=== PATIENT | male | born 1955 | race Caucasian/White ===

== ENCOUNTER → 2020-02-19 | Outpatient (CLI) | payer BC ==
[~2020-02-19] MED LIST: ALLOPURINOL 10100 M3 PO; ASA81BEC PO; EFFIENT10 MG PO; ENTRESTO 49 MG1 EACH PO; FISH OIL 1,0001 EAC9 PO; FLOMAX0.4 MG PO; LIPITOR40 MG PO; NITROSTAT0.4 M1 SUBLING; SEROQUEL 50 MG50 M1 PO; SPIRONOLACTONE25 MG PO; TOPROL XL25 MG PO
== END ==
LOC: LAB 08:01
PROVIDERS: ATTEND Surgery Vascular Surgery
DX: Z01.812 Encounter for preprocedural laboratory examination (principal); Z20.828 Contact with and (suspected) exposure to other viral communicable diseases

== ENCOUNTER 2020-02-25 18:11 | Inpatient (IN) | payer BC, OTHER ==
--- NOTE | 2020-02-19 09:07 | EKG ---
[facility] [place] [address] ELECTROCARDIOGRAM REPORT Name: VALERAERVIN Room #: PRE IN M.R.#: [id number] Admission: Attend Phys: Kory Mosher MD Discharge: Date of : 53 Report #: [id number] THIS REPORT FOR: cc: Gilbert Pérez MD, Greg L. MD Santiago, Patrick MD [facility] ~ THIS REPORT FOR: //name// [facility] Test Date: 2020-02-19 Test Time: 08:59:25 Pat Name: ERVIN VALERA Department: Room: Gender: M Pta: HECTOR CLARK : 1955 Requested By: Kory Mosher Order Number: [id number] : Hernán Méndez Measurements Intervals [place] Rate: 60 P: 15 NM: 167 QRS: -12 QRSD: 118 T: 67 QT: 483 QTc: 483 Interpretive Statements Sinus rhythm Incomplete left bundle branch block Low voltage, precordial leads Anterior Q waves, possibly due to ILBBB No previous ECG available for comparison Electronically Signed On 02-19-2020 9:07:22 OCCUPATIONAL THERAPIST REHAB MANAGER by Hernán Méndez [email or web address] <ELECTRONICALLY SIGNED> By: Hernán Méndez MD, FAC 02/19/2007 Hernán Méndez MD, [facility] /EPI
[2020-02-19 09:10] LABS: ABSOLUTE NEUTROPHILS 4.6 thou/uL (1.4-8.2); BASOPHILS 0.7 % (0.0-2.0); EOSINOPHILS 2.4 % (0.0-3.0); HEMATOCRIT 43.6 % (42.0-52.0); HEMOGLOBIN 14.8 gm/dL (14.0-18.0); LYMPHOCYTES 16.7 % (24.0-44.0); MCH 29.6 pg (26.0-34.0); MONOCYTES 9.7 % (1.0-8.0); PLATELET COUNT 232 thou/uL (150-400); POLYS 70.5 % (36.0-66.0); RBC 5.01 mil/uL (4.50-6.00); RDW 13.6 % (10.5-14.5); WBC 6.5 thou/uL (4.0-11.0)
[2020-02-19 09:13] LABS: URINE BILIRUBIN NEGATIVE (Negative); URINE BLOOD NEGATIVE (Negative); URINE CLARITY CLEAR; URINE COLOR YELLOW; URINE GLUCOSE-RANDOM* NEGATIVE (Negative); URINE KETONES NEGATIVE (Negative); URINE LEUKOCYTES-REFLEX NEGATIVE (Negative); URINE NITRITE-REFLEX NEGATIVE (Negative); URINE PROTEIN (DIPSTICK) NEGATIVE (Negative); URINE SPECIFIC GRAVITY 1.015 (1.005-1.035); URINE UROBILINOGEN 0.2 E.U./dl (0.2-1.0)
[2020-02-19 09:26] LABS: APTT 29.2 Seconds (24.5-32.8); INR 1.1; PROTIME 10.9 Seconds (9.3-11.4)
[2020-02-19 09:31] LABS: ALBUMIN 3.4 g/dL (3.4-5.0); CALCIUM 9.7 mg/dL (8.5-10.1); CREATININE 1.4 mg/dL (0.7-1.3); POTASSIUM 3.9 mmol/L (3.5-5.1); TOTAL BILIRUBIN 0.8 mg/dL (0.2-1.0); TOTAL PROTEIN 6.6 g/dL (6.4-8.2)
[2020-02-20 00:06] LABS: GLYCOHEMOGLOBIN (HGB A1C) 5.7 % (4.8-5.6)
[~2020-02-25] VITALS: Ht 182.9 cm; Wt 69.9 kg
[2020-02-25 18:15] VITALS: BP 130/87
[2020-02-25 20:04] VITALS: BP 130/76
--- NOTE | 2020-02-25 20:31 | NUR ---
PT ARRIVED TO UNIT AT APPROX 1815. HOSPITALIST NOTIFIED OF ARRIVAL. VSS. DENIES PAIN/CHEST PAIN. TIROFIBAN GTT STARTED PER ORDERS. PAPER ORDERS RECEIVED FROM DR WORLEY ENTERED INTO SYSTEM. PLAN FOR CAROTIDS/VEIN MAPPING TOMORROW, CABG 02/27. IV STARTED. TELE APPLIED. PT WEARS LIFE VEST-PT APPLIED. WILL PASS ON REPORT TO PASQUALE YOUNG.
[2020-02-26 00:16] VITALS: BP 129/70
[2020-02-26 04:56] LABS: HEMATOCRIT 41.2 % (42.0-52.0); HEMOGLOBIN 13.6 gm/dL (14.0-18.0); MCH 28.9 pg (26.0-34.0); MCV 87.7 fL (80.0-100.0); RBC 4.7 mil/uL (4.50-6.00); RDW 13.6 % (10.5-14.5); WBC 6.6 thou/uL (4.0-11.0)
[2020-02-26 05:07] VITALS: BP 123/68
[2020-02-26 05:19] LABS: CALCIUM 8.8 mg/dL (8.5-10.1); CREATININE 1.2 mg/dL (0.7-1.3); MAGNESIUM 1.9 mg/dL (1.8-2.4); POTASSIUM 3.9 mmol/L (3.5-5.1)
--- NOTE | 2020-02-26 06:12 | NUR ---
ASSUME CARE 1900. PT/VITALS STABLE. DENIES ANY CHEST PAIN. TOLERATING ACTIVITY WELL. NO DITRESS NOTED. SR ON MONITOR. ASSESSMENT CHARTED. PROGRESSING WELL WITH POC. PT ON AGGRASTAT DRIP. NO ARRHYTHMIA NOTED THROUGH THE NIGHT. RESTING QUIETLY. PLAN IS POSSIBLE CABG ON 02/28/20. WILL CONTINUE TO MONITOR AND FOLLOW WIHT POC
[2020-02-26 08:07] VITALS: BP 140/94
[2020-02-26 12:02] VITALS: BP 127/83
[2020-02-26 16:35] VITALS: BP 143/79
--- NOTE | 2020-02-26 18:17 | NUR ---
Patient had an uneventful day. Heart rate and rhythm stable. Patient has worn life vest all day. No activity. Patient up to chair on/off throughout the day. Adequate oxygenation on room air. Tolerating diet. Voiding adequate amounts. Patient will have open heart surgery on . Denies pain. See documemtation on interventions for assessment details. Pt is progressing towards plan of care.
--- NOTE | 2020-02-26 19:25 | NUR ---
VASCULAR ACCESS CONSULTED FOR MIDLINE PRE CABG SURG. DISCUSSED BENEFITS AND RISK OF ML WITH PT,VERBALIZED UNDERSTANDING AND GAVE VERBAL CONSENT TO LINE PLACEMENT. SUSHILA BASILIC WIDELY PATENT WITH US GUIDE,4FR POWER ML TRIMMED TO 11CM INSERTED TO 0CM WITH BRISK BR. PT TOLERATED WELL. ML RELEASED TO JASWINDER YOUNG PER PROTOCOL
[2020-02-26 19:50] VITALS: BP 145/86
[2020-02-27 05:17] VITALS: BP 117/72
--- NOTE | 2020-02-27 06:41 | NUR ---
ASSUMED PATIENT CARE AT 1845. VITAL SIGNS STABLE WITH PATIENT HAVING NO COMPLAINTS OF PAIN OR NAUSEA. FULLY ORIENTED, PATIENT IS ABLE TO CALL APPROPRIATELY FOR NEEDS AND PARTICIPATE IN CARE. NO ABNORMAL FINDINGS ON MAT MAKING MACHINE TENDER. PATIENT HAS BEEN UP AD RACHANA THROUGHOUT SHIFT AND IS STRONG AND BALANCED WHEN AMBULATING. EXPECTED PROCEDURE 02/28/20. CONTINUE PLAN OF CARE.
[2020-02-27 07:15] VITALS: BP 114/66
--- NOTE | 2020-02-27 10:30 | NUR ---
Case opened to follow for dc planning needs. Chart reviewed, case discussed with the care team and cm assessment completed at bedside. The pt is a&ox4 and is having open heart surgery tomorrow. He has a life vest on and reports having an [place] in August 2019. He was at [facility] for a month and was able to go to their rehab and ultimately dc to home with hh per the [facility]. He is up ad paris at this time and steady on his feet. He does have a FWW and cane at home if needed at tx. He lives alone in a ranch style home with one step to enter and 12 down to the basement laundry. He has a cleaning lady 1-2x monthly and his sister Sherri is planning to help with errands, laundry and f/u appts at tx. She is also his dpoa for health care if needed. He is hoping he will be able to return home with outpt cardiac rehab, but is open to HH per the [facility] again at tx. CM role introduced. Will follow along for possible HH referral at tx. Will reassess postop CABG.
[2020-02-27 11:10] VITALS: BP 137/75
[2020-02-27 15:35] VITALS: BP 137/63
--- NOTE | 2020-02-27 16:17 | NUR ---
ASSESSMENT CHARTED. PT ALERT AND ORIENTED. VSS. DENIED HAVING PAIN OR DISCOMFORT. UP IN THE CHAIR THIS SHIFT. LIFE VEST ON. SR ON TELE. NPO AFTER MIDNIGHT FOR CABG IN AM. CONSENT SIGNED. NO CARDIAC DISTRESS NOTED.
[2020-02-27 20:11] VITALS: BP 131/65
[2020-02-28] VITALS (33 sets, daily range): BP systolic 102–134; BP diastolic 54–80
--- NOTE | 2020-02-28 07:31 | NUR ---
ASSUMED PATIENT CARE AT 1845. VITAL SIGNS STABLE WITH PATIENT HAVING NO COMPLAINTS OF PAIN OR NAUSEA. FULLY ORIENTED, PATIENT IS ABLE TO PARTICIPATE IN CARE AND CALL APPROPRIATELY FOR REQUESTS. NO ABNORMALITIES ON TELE. BREATHING STABLE ON ROOM AIR EVIDENCED BY ASSESSMENTS AND SPOT OXYGENATION CHECKS. PATIENT HAS BEEN KEPT NPO FOR PROCEDURE THIS MORNING. PRE OP CARE GIVEN WITH FULL REPORT. PATIENT TRANSFERRED TO PRE OP AT APPROXIMATELY 0600. UP AD RACHANA THROUGHOUT SHIFT, PATIENT IS BALANCED AND COORDINATED WHEN AMBULATING. CONTINUE PLAN OF CARE.
--- NOTE | 2020-02-28 10:07 | CATHLAB ---
[facility] [place] [address] INVASIVE PROCEDURE REPORT Name: ERVIN VALERA Room #: 170-1 ADM IN M.R.#: [id number] Admission: 02/25/20 Attend Phys: Peter Campos MD Discharge: Date of : 53 Report #: [id number] THIS REPORT FOR: cc: Gilbert Pérez MD, Greg L. MD Lundgren, Craig H. MD [facility] ~ APPROVED REPORT Study performed: 02/28/2020 08:58:48 Patient Details Patient Status: In-Patient Room #: The patient is a 64 year-old male Event Personnel Brielle Lora RN RN, Mirta Rogers Monitor, Jessica Webster RTR, DEVELOPMENT ASSISTANT Scrub, Eric Torres Manager Massage Department, Negrita Almanza RT(R)() Mental Measurements Teacher Procedures Performed Art Access - L femoral artery* IABP Placement [id number] IABPI 13482 Initial Mod Sed Same Phys/QHP Gr5y 445457 98434 Mod Sed Same Phys/QHP Ea 874708 Indication Cardiomyopathy, PLACED PRE OP FOR BYPASS. Procedure Narrative The patient was brought urgently to the Cardiac Catheterization Laboratory and was prepped and draped in a sterile manner. The left groin was infiltrated with 1% Lidocaine subcutaneous anesthesia. A FIBEROPTIX 8F 40CC #[id number] sheath was inserted into the LFA^. Coronary angiography was performed using coronary diagnostic catheters. The patient tolerated the procedure well and there were no complications associated with the procedure. There was no hematoma. ARROW FIBEROPTIX IAB 40CC 8F PLACED PRE OP FOR SURGERY. Counterpulsation at 1:1 started. Tolerated well. Intraoperative Conscious Sedation Sedation start time: 907 Case end Time: 929 Fentanyl 100 mcg Versed 2 mg Fluoro Time: 0.60 minutes [facility] [place] [address] INVASIVE PROCEDURE REPORT Name: VALERAERVIN Room #: [address] [place] [address] IN ..#: [id number] Admission: 02/25/20 Attend Phys: Peter Campos, Discharge: Date of : 53 Report #: [id number] Dose: DAP 845.00 cGycm2 174 mGy Conclusion 1. Successful intra-aortic balloon pump placed with 1:1 counterpulsation started <ELECTRONICALLY SIGNED> By: Eric Torres MD, FACC 02/28/201005 05 05 Eric Torres MD, FACC /INF
[2020-02-28 15:14] LABS: HEMATOCRIT 25.8 % (42.0-52.0); MCH 29.1 pg (26.0-34.0); MCHC 33.1 g/dL (28.0-37.0); RBC 2.93 mil/uL (4.50-6.00); RDW 13.6 % (10.5-14.5); WBC 12.8 thou/uL (4.0-11.0)
[2020-02-28 15:16] LABS: HEMOGLOBIN 8.5 gm/dL (14.0-18.0)
[2020-02-28 15:29] LABS: APTT 32.1 Seconds (24.5-32.8); FIBRINOGEN 239.7 mg/dL (210-360); INR 1.7
[2020-02-28 16:36] LABS: HEMATOCRIT 33.8 % (42.0-52.0); MCH 29.2 pg (26.0-34.0); MCHC 33.1 g/dL (28.0-37.0); MCV 88.3 fL (80.0-100.0); RBC 3.83 mil/uL (4.50-6.00); RDW 13.7 % (10.5-14.5); WBC 13.8 thou/uL (4.0-11.0)
[2020-02-28 16:37] LABS: HEMOGLOBIN 11.2 gm/dL (14.0-18.0)
[2020-02-28 16:42] LABS: CALCIUM 8.3 mg/dL (8.5-10.1); CREATININE 1.2 mg/dL (0.7-1.3); MAGNESIUM 2.4 mg/dL (1.8-2.4)
[2020-02-28 16:52] LABS: BE(vivo) -7.2 mmol/L (-2 to +3); HCO3 19.2 mmol/L (22.0-26.0); PO2 145.1 mmHg (80.0-100.0); sO2 98.6 % (92.0-98.0)
[2020-02-28 16:52] LABS: APTT 28.8 Seconds (24.5-32.8); INR 1.2; PROTIME 12.1 Seconds (9.3-11.4)
[2020-02-28 16:53] LABS: pH 7.277 (7.360-7.450)
--- NOTE | 2020-02-28 17:10 | NUR ---
@4708 CAMDEN POWELL CALLED FOR AN UPDATE, DR WORLEY AT BEDSIDE AND CAMDEN UPDATED AT THIS TIME.
--- NOTE | 2020-02-28 19:00 | NUR ---
ASSESSMENTS AND INTERVENTIONS DOCCUMENTED. PATIENT ARRIVED TO THE UNIT WITH DR. ROSAS, NATIVIDAD MULLIGAN, DR. MATHIS AND 2 OR NURSES. PATIENT SETTLED INTO THE ROOM. SWAN, BALLOON PUMP IN TACT AND CHEST TUBES IN PLACE NO CLOTTING NOTED. AT 1651. DR. WORLEY PULLING BACK SWAN AND BALLOON PUMP. FOLLOW UP CXR DONE, DR. WORLEY AND NATIVIDAD MULLIGAN AT BEDSIDE. PATIENT STABLE. NO ISSUES AT THIS TIME. PATIENT PROGRESSING TOWARDS GOALS AT THIS TIME.
[2020-02-28 20:31] LABS: CALCIUM 8.3 mg/dL (8.5-10.1); CREATININE 1.2 mg/dL (0.7-1.3); POTASSIUM 4.6 mmol/L (3.5-5.1)
[2020-02-28 23:37] LABS: BE(vivo) -4.5 mmol/L (-2 to +3); HCO3 19.6 mmol/L (22.0-26.0); PCO2 32.9 mmHg (35.0-45.0); PO2 115.7 mmHg (80.0-100.0); pH 7.393 (7.360-7.450); sO2 98.2 % (92.0-98.0)
[2020-02-29] VITALS (20 sets, daily range): BP systolic 99–122; BP diastolic 49–67
[2020-02-29 00:18] LABS: HCO3 18.7 mmol/L (22.0-26.0); PCO2 30.8 mmHg (35.0-45.0); PO2 108.5 mmHg (80.0-100.0); pH 7.402 (7.360-7.450)
[2020-02-29 01:00] LABS: BE(vivo) -5.8 mmol/L (-2 to +3); HCO3 17.9 mmol/L (22.0-26.0); PCO2 29.5 mmHg (35.0-45.0); PO2 80.8 mmHg (80.0-100.0); sO2 96.1 % (92.0-98.0)
--- NOTE | 2020-02-29 04:21 | NUR ---
Pt has not rested well through the shift, he reports a throbbing pain, rated from 8-10/10, despite prn meds given. He was extubated at 0025, and placed on face shield at 40%, lungs are clear/diminished, fair cough noted. Lt groin accessed, IABP in place, distal pulse is intact, foot slightly cool, (the room is cooler though), cap refill is <2 seconds. Insulin gtt was started at 0157, and is currently infusing at 6 units/hr, for BGL of 139. Monitor does show occasional ectopy, PAC's with a first degree AVB, rate from 80's-90's, no edema. Pt is taking ice chips well, no dysphagia, no complaint of nausea. The bed is in the low/locked position, the siderails are up x 4 , will continue to monitor.
[2020-02-29 04:24] LABS: HEMATOCRIT 31.8 % (42.0-52.0); HEMOGLOBIN 10.5 gm/dL (14.0-18.0); MCHC 33.1 g/dL (28.0-37.0); MCV 87.8 fL (80.0-100.0); RBC 3.62 mil/uL (4.50-6.00); RDW 13.5 % (10.5-14.5); WBC 12.9 thou/uL (4.0-11.0)
[2020-02-29 04:34] LABS: CALCIUM 8.3 mg/dL (8.5-10.1); CREATININE 1.2 mg/dL (0.7-1.3); MAGNESIUM 2.3 mg/dL (1.8-2.4); POTASSIUM 4.1 mmol/L (3.5-5.1)
--- NOTE | 2020-02-29 07:02 | EKG ---
[facility] [place] [address] ELECTROCARDIOGRAM REPORT Name: ERVIN VALERA Room #: 248-P ADM IN M.R.#: [id number] Admission: 02/25/20 Attend Phys: Peter Campos MD Discharge: Date of : 53 Report #: [id number] THIS REPORT FOR: cc: Gilbert Pérez MD, Greg L. MD Santiago, Patrick MD [facility] ~ THIS REPORT FOR: //name// [facility] Test Date: 2020-02-28 Test Time: 19:23:06 Pat Name: ERVIN VALERA Department: Room: 248 Gender: M Attendant Child Activity: HILARIO : 1955 Requested By: Pablo Hartley Order Number: [id number] MD: Hernán Méndez Measurements Intervals [place] Rate: 94 P: 46 FL: 181 QRS: -12 QRSD: 109 T: 51 QT: 427 QTc: 535 Interpretive Statements Sinus rhythm Low voltage, precordial leads Abnormal R-wave progression, early transition Prolonged QT interval Compared to ECG 02/19/2020 08:59:25 Prolonged QT interval now present Left bundle-branch block no longer present Q waves no longer present Electronically Signed On 02-29-2020 7:02:45 SENIOR IT ASSISTANT by Hernán Méndez [email or web address] <ELECTRONICALLY SIGNED> By: Hernán Méndez MD, FACC 02/29/20701 22 22 Hernán Méndez MD, [facility] /EPI
--- NOTE | 2020-02-29 08:13 | EKG ---
[facility] [place] [address] ELECTROCARDIOGRAM REPORT Name: ERVIN VALERA Room #: 248-P ADM IN M.R.#: [id number] Admission: 02/25/20 Attend Phys: Peter Campos MD Discharge: Date of : 53 Report #: [id number] THIS REPORT FOR: cc: Gilbert Pérez MD, Greg L. MD Couchonnal, Luis F. MD ~ THIS REPORT FOR: //name// [facility] Test Date: 2020-02-29 Test Time: 07:40:03 Pat Name: ERVIN VALERA Department: Room: 248 P Gender: M Expedition Supervisor: CELESTINA : 1955 Requested By: Pablo Hartley Order Number: [id number] MD: Kevin Noel Measurements Intervals [place] Rate: 76 P: 51 MA: 175 QRS: -6 QRSD: 109 T: 80 QT: 441 QTc: 496 Interpretive Statements Sinus rhythm Low voltage, precordial leads Abnormal R-wave progression, early transition Borderline prolonged QT interval Compared to ECG 02/28/2020 19:23:06 Electronically Signed On 02-29-2020 8:13:27 TEST AUTOMATION ARCHITECT by Kevin Noel [email or web address] <ELECTRONICALLY SIGNED> By: Kevin Noel MD 02/29/20812 9 9 Kevin Noel MD /EPI
--- NOTE | 2020-02-29 08:34 | NUR ---
Nutrition: pt S/P CABG X 5. Consult received. Will followup when out of ICU and closer to D/C.
[2020-02-29 09:06] LABS: POC BE -2 mmol/L (-2.0 to +3.0); POC CA IONIZED 4.3 mg/dL (4.5-5.3); POC GLUCOSE 140 mg/dL (70-99); POC HCO3 23.2 mmol/L (22.0-26.0); POC HEMOGLOBIN 8.8 g/dL (14.0-18.0); POC POTASSIUM 5.2 mmol/L (3.5-5.1); POC SODIUM 138 mmol/L (136-145); POC pCO2 37.9 mmHg (35.0-45.0); POC pH 7.394 (7.360-7.450)
[2020-02-29 09:06] LABS: POC BE -2 mmol/L (-2.0 to +3.0); POC CA IONIZED 4.7 mg/dL (4.5-5.3); POC GLUCOSE 107 mg/dL (70-99); POC HCO3 23.4 mmol/L (22.0-26.0); POC HEMOGLOBIN 12.2 g/dL (14.0-18.0); POC POTASSIUM 4.7 mmol/L (3.5-5.1); POC SODIUM 138 mmol/L (136-145); POC pCO2 38.1 mmHg (35.0-45.0); POC pH 7.396 (7.360-7.450)
[2020-02-29 09:07] LABS: POC BE -2 mmol/L (-2.0 to +3.0); POC CA IONIZED 4.2 mg/dL (4.5-5.3); POC GLUCOSE 155 mg/dL (70-99); POC HCO3 22.7 mmol/L (22.0-26.0); POC HEMOGLOBIN 8.8 g/dL (14.0-18.0); POC POTASSIUM 5.6 mmol/L (3.5-5.1); POC SODIUM 138 mmol/L (136-145); POC pCO2 38.2 mmHg (35.0-45.0); POC pH 7.382 (7.360-7.450)
[2020-02-29 09:07] LABS: POC BE -3 mmol/L (-2.0 to +3.0); POC CA IONIZED 4.7 mg/dL (4.5-5.3); POC GLUCOSE 127 mg/dL (70-99); POC HCO3 22.8 mmol/L (22.0-26.0); POC HEMOGLOBIN 11.6 g/dL (14.0-18.0); POC POTASSIUM 4.8 mmol/L (3.5-5.1); POC SODIUM 137 mmol/L (136-145); POC pCO2 42.1 mmHg (35.0-45.0); POC pH 7.342 (7.360-7.450)
[2020-02-29 09:07] LABS: POC BE -3 mmol/L (-2.0 to +3.0); POC CA IONIZED 4.6 mg/dL (4.5-5.3); POC GLUCOSE 151 mg/dL (70-99); POC HCO3 22.5 mmol/L (22.0-26.0); POC HEMOGLOBIN 8.8 g/dL (14.0-18.0); POC SODIUM 137 mmol/L (136-145); POC pCO2 42.3 mmHg (35.0-45.0); POC pH 7.335 (7.360-7.450)
[2020-02-29 09:07] LABS: POC BE 0 mmol/L (-2.0 to +3.0); POC CA IONIZED 4.2 mg/dL (4.5-5.3); POC GLUCOSE 130 mg/dL (70-99); POC HCO3 24.4 mmol/L (22.0-26.0); POC HEMOGLOBIN 9.9 g/dL (14.0-18.0); POC POTASSIUM 5.1 mmol/L (3.5-5.1); POC SODIUM 137 mmol/L (136-145); POC pH 7.394 (7.360-7.450)
[2020-02-29 09:07] LABS: POC BE -3 mmol/L (-2.0 to +3.0); POC CA IONIZED 4.3 mg/dL (4.5-5.3); POC GLUCOSE 152 mg/dL (70-99); POC HCO3 22.4 mmol/L (22.0-26.0); POC HEMOGLOBIN 8.8 g/dL (14.0-18.0); POC POTASSIUM 5.7 mmol/L (3.5-5.1); POC SODIUM 138 mmol/L (136-145); POC pCO2 41.3 mmHg (35.0-45.0); POC pH 7.342 (7.360-7.450)
[2020-02-29 09:07] LABS: POC BE -5 mmol/L (-2.0 to +3.0); POC CA IONIZED 4.5 mg/dL (4.5-5.3); POC GLUCOSE 147 mg/dL (70-99); POC HCO3 20.8 mmol/L (22.0-26.0); POC HEMOGLOBIN 10.9 g/dL (14.0-18.0); POC POTASSIUM 4.8 mmol/L (3.5-5.1); POC SODIUM 138 mmol/L (136-145); POC pCO2 39.5 mmHg (35.0-45.0); POC pH 7.329 (7.360-7.450)
--- NOTE | 2020-02-29 11:05 | O ---
[facility] [place] [address] OPERATIVE REPORT Name: ERVIN VALERA Room #: 248-P [facility] IN M.R.#: [id number] Admission: 02/25/20 Attend Phys: Peter Campos MD Discharge: Date of : 53 Report #: [id number] THIS REPORT FOR: cc: Gilbert Pérez MD, Greg L. MD Forman, John M. MD ~ CC: Gilbert Campos DATE OF SERVICE: 02/28/2020 PREOPERATIVE DIAGNOSIS: Coronary artery disease. POSTOPERATIVE DIAGNOSIS: Coronary artery disease. OPERATION: Coronary artery bypass x 5 including left internal mammary artery to left anterior descending artery, saphenous vein to diagonal, marginal 1 and marginal 2 and saphenous vein to posterior descending artery and endoscopic harvest, right greater saphenous vein. SURGEON: Kory Mosher MD PUNCH OUT CREW MEMBER: ISAAK Olivo. ANESTHESIA: General. INDICATIONS: The patient is a 64-year-old with coronary artery disease. The patient had an acute event in the summer and had angioplasty of circumflex marginal and at that time, he also had chronically occluded LAD and right coronary arteries. The patient had a reduced ventricular function at that time and since, the patient had a long hospitalization after that event, but ultimately recovered enough to be considered for bypass surgery. Because the patient has an ejection fraction in the 20-25% range by serial echos and elective balloon pump was placed prior to surgery. TECHNIQUE: After general anesthesia was established and after the patient had had the balloon pump placed in the catheterization lab, right greater saphenous vein was harvested and prepared for use as a conduit and endoscopic approach was used for the harvest. Exposure was obtained through median sternotomy. Left internal mammary artery was harvested from chest wall. Pericardial well was made. Cannulation sutures were placed. Heparin was given. Aorta was cannulated. Right atrium was cannulated. Cardioplegia needle was positioned in the aortic root. Retrograde cardioplegic catheter was placed in coronary sinus. Cardiopulmonary bypass was [facility] [address] [place] [address] OPERATIVE REPORT Name: ERVIN VALERA Room #: 248-P [facility] IN M.R.#: [id number] Admission: 02/25/20 Attend Phys: Peter Campos MD Discharge: Date of : 53 Report #: [id number] established. The aorta was cross clamped. Antegrade and retrograde cardioplegia were given. Ice was poured in the pericardial well. The heart was stopped. During electromechanical arrest, the distal anastomoses were performed and end-to-side anastomosis was made between vein and the posterior descending artery. Cold cardioplegia was given. A separate segment of vein was sewn in end-to-side fashion to the second marginal artery. Cold cardioplegia was given. The same segment of vein was sewn in adho-hm-ozgo fashion to first marginal artery. Cold cardioplegia was given. The same segment of vein was sewn in end-to-side fashion to the diagonal artery. Cold cardioplegia was given. Left internal mammary artery was sewn in end-to-side fashion to the left anterior descending artery. Patency of this vessel was checked with the temperature technique. Cold cardioplegia was given. Two proximal anastomoses were performed. When these were complete, warm retrograde cardioplegia was given followed by warm continuous blood to the coronary sinus. When this infusion was complete, the crossclamp was removed, de-airing maneuvers were performed. The anastomoses were inspected and found to be satisfactory. As the patient warmed, nice cardiac activity resumed, chest tubes and pacing wires were placed. A marker was placed around the proximal anastomoses. When the patient was warm, he was weaned from cardiopulmonary bypass. Empirically, we chose a low dose dobutamine as well as the balloon pump. The patient tolerated weaning from the bypass as well. Venous cannula was removed. Protamine was given, the aortic cannula was removed. Flows were measured in the bypass grafts. When hemostasis was satisfactory, chest was irrigated with antibiotic solution and closed in the usual fashion. The patient tolerated surgery well and was taken to the Intensive Care Unit in good condition. All counts reported as correct. <ELECTRONICALLY SIGNED> By: Kory Mosher MD 02/29/20 1105 1957 2219 Kory Mosher MD /nt
--- NOTE | 2020-02-29 12:47 | NUR ---
0710-ASSUMED CARE OF PT.--VW 1100-IABP PULLED BY NATIVIDAD MALLOY,CV P.A. W AT BEDSIDE. PRESSURE INITIALLY HELD BY NATIVIDAD THEN TAKEN OVER BY THIS RN.TOTAL TIME HELD 50 MINUTES. LT GROIN SITE SOFT,NO BLEEDING OR HEMATOMA. HEMOSTASIS @ 1055. PRSS DRSG TO SITE. UTO ANY DISTAL SIGNALS EXCEPT W USE OF DOPPLER. PEDALS FAINT,RT POST TIB FAINT. UTO LT POST TIB. FEET COOL, NO CYANOSIS.PT NICK THIS WELL.--VW 1250-PT HAS CONSISTENTLY C/O OP PAIN A 01/04. NO RELIEF W TURNING/REPOS, OR USE OF FENTANYL. IV TYLENOL STARTED p D/W THIS AM. PT STATES NO RELIEF OR EASING UP OF PAIN.PT ASKED FOR IBUPROFEN- SAID NO (CKD).DESPITE COMFORT MEASURES PT STATES HE IS MISERABLE. ZOFRAN FOR QUEEZY STOMACH. TAKING ICE CHIPS EARLIER, DRINKING WATER ONLY W ENC (SIPS).PT CONT'S W SPLINTING RESP'S.SCANT OUTPUT FROM MST'S/CT.REPOS FOR COMFORT SEV X'S SINCE IABP OUT.LT GROIN REMAINS STABLE.--VW
--- NOTE | 2020-02-29 15:30 | NUR ---
chart review. pt eval orders, variance today. chaz has been up to chair. had pain. o2 per nasal cannula. no anticipated dc over the weekend. he was agreeable to [facility] if needed. will discuss rehab if recommended for dc needs. will cont following as needed for dc needs next week. unable to visit with chaz rt bedside nurse in room for cares.
[2020-03-01] VITALS (8 sets, daily range): BP systolic 107–148; BP diastolic 59–82
[2020-03-01 06:15] LABS: HEMATOCRIT 26.3 % (42.0-52.0); HEMOGLOBIN 8.7 gm/dL (14.0-18.0); MCH 29.1 pg (26.0-34.0); MCV 88.1 fL (80.0-100.0); RBC 2.99 mil/uL (4.50-6.00); RDW 13.7 % (10.5-14.5); WBC 11.3 thou/uL (4.0-11.0)
[2020-03-01 06:27] LABS: CALCIUM 8.6 mg/dL (8.5-10.1); CREATININE 1.2 mg/dL (0.7-1.3); POTASSIUM 4.4 mmol/L (3.5-5.1)
--- NOTE | 2020-03-01 14:54 | NUR ---
ASSUMED CARE OF PT AT CHANGE OF SHIFT. 899 UPDATED PT SISTER REGARDING PT STATUS. PT CONTINUING COMPLIANING OF 01/[address] FROST REGARDING PAIN MED REGIMEN. OK TO RESUME HDROCODONE PRN PER MEIR. SUSANNAENE AT 0915 FOR SUSTAINED SYSTOLICS IN 160'S. CARDENE OFF BY 1115 W/ PT SYSTOLICS 110'S. OK PER JAC TO REMOVE SWAN, ART LINE, AND BROWN. ALL OF WHICH D/C AT 1345. PT UP X1 W/PT VERY STEADY AT 1420. TRANSFERED TO CCU AT 1445
--- NOTE | 2020-03-01 19:42 | NUR ---
PT CARE ASSUMED AT 0700. ASSESSMENTS CHARTED. MEDICATION CHARTED. LT MIDLINE. IS; 750. USES URINAL/BSC. CHEST TUBE LT. EF; 25% TRANSFER FROM ICU AT 1400.
[2020-03-02] VITALS (8 sets, daily range): BP systolic 104–124; BP diastolic 58–81
--- NOTE | 2020-03-02 08:17 | NUR ---
ASSUMED CARE AT CHANGE OF SHIFT, PT IS AWAKE, ALERT AND ORIENTEDX4, SR ON THE MONITOR, PAIN FROM CHEST TUBE SITE, PAIN MEDICATION GIVEN WITH PARTIAL RELIEF, CHEST TUBE INTACT, WITH 20CC OUTPUT, NO URINE OUTPUT AFTER BROWN REMOVAL, BLADDER SCANNED WITH 739, STRAIGHT CATHX1 AND FLOMAX RESTARTED PER SUPERVISOR ROVING, PT ABLE TO VOID AFTER, NO OTHER CONCERNS, PASSED ON REPORT
--- NOTE | 2020-03-02 18:36 | NUR ---
PT CARE ASSUMED AT 0700. ASSESSMENTS CHARTED. MEDICATION CHARTED. LT MIDLINE. JULIÁN CHEST DRESSING. CHEST TUBE REMOVED BY DR WORLEY THIS AM. IS: 750 ML. SBA. EF 25%.
--- NOTE | 2020-03-03 03:55 | NUR ---
ASSUMED CARE OF PATIENT AT 1900. VSS, AFEBRILE. UP TO BATHROOM TO VOID. FLOMAX IS WORKING WELL. REFUSING PAIN MEDS THIS SHIFT. PROGRESSING WELL TOWARDS POC GOALS.
[2020-03-03 05:15] VITALS: BP 125/74
[2020-03-03 06:38] LABS: CALCIUM 8.7 mg/dL (8.5-10.1); POTASSIUM 3.8 mmol/L (3.5-5.1)
[2020-03-03 06:39] LABS: HEMATOCRIT 33.4 % (42.0-52.0); MCH 29.2 pg (26.0-34.0); MCHC 33.3 g/dL (28.0-37.0); MCV 87.7 fL (80.0-100.0); RBC 3.81 mil/uL (4.50-6.00); RDW 13.8 % (10.5-14.5); WBC 8.7 thou/uL (4.0-11.0)
[2020-03-03 06:44] LABS: HEMOGLOBIN 11.1 gm/dL (14.0-18.0)
--- NOTE | 2020-03-03 07:39 | EKG ---
[facility] [place] [address] ELECTROCARDIOGRAM REPORT Name: ERVIN VALERA Room #: 210-P ADM IN M.R.#: [id number] Admission: 02/25/20 Attend Phys: Peter Campos MD Discharge: Date of : 53 Report #: [id number] THIS REPORT FOR: cc: Gilbert Pérez MD, Greg L. MD Santiago, Patrick MD [facility] ~ THIS REPORT FOR: //name// [facility] Test Date: 2020-03-03 Test Time: 07:16:46 Pat Name: ERVIN VALERA Department: Room: 210 P Gender: M Body Mechanic: CELESTINA : 1955 Requested By: Kory Mosher Order Number: [id number] MD: Hernán Méndez Measurements Intervals [place] Rate: 75 P: 54 NV: 168 QRS: -2 QRSD: 103 T: 101 QT: 413 QTc: 462 Interpretive Statements Sinus rhythm Anteroseptal infarct, age indeterminate Minimal ST elevation, inferior leads Compared to ECG 02/29/2020 07:40:03 Myocardial infarct finding now present ST (T wave) deviation now present Electronically Signed On 03-03-2020 7:39:23 BRAZE OPERATOR by Hernán Méndez [email or web address] <ELECTRONICALLY SIGNED> By: Hernán Méndez MD, FACC 03/03/2039 5 5 Hernán Méndez MD, FACC /EPI
[2020-03-03 12:03] VITALS: BP 133/78
--- NOTE | 2020-03-03 13:31 | NUR ---
I have reviewed the documentation by ARIEL CHESTER from 03/03/20 to 03/03/20 and I concur with it. DEANNE NORIEGA, PT, DPT
--- NOTE | 2020-03-03 15:59 | NUR ---
I have reviewed the documentation by ARIEL CHESTER from 03/03/20 to 03/03/20 and I concur with it. DEANNE NORIEGA, PT, DPT
[2020-03-03 16:25] VITALS: BP 134/77
--- NOTE | 2020-03-03 17:26 | NUR ---
ASSUMED CARE AT CHANGE OF SHIFT. ALERT X4, POST CABG X4, PAIN MANAGED WITH PRN MEDS. DRESSING CHANGED AND SHOWERED TODAY WITH OT. UP AB RACHANA TO BATHROOM. WILL DC HOME WITH HH TOMORROW.
[2020-03-03 20:06] VITALS: BP 129/66
[2020-03-04] VITALS (7 sets, daily range): BP systolic 101–127; BP diastolic 63–75
--- NOTE | 2020-03-04 04:27 | NUR ---
1900, PT ALERT AND ORIENTED. VITALS STABLE. PT STEABLE UP INDEPENDENTLY TO THE BEDSIDE COMMODE. PT C/O OF STERNAL PAIN, ALLEVIATED BY NORCO. DENIES ANY OTHER CONCERN. PT PROGRESSING TOWARDS GOAL AND EXPECTED TO DC HOME TODAY. WILL CONTINUE TO FOLLOW POC.
[2020-03-04] MEDS ORDERED: FERREX 150 PLU1 EAC1 PO (08:13)
[2020-03-04] MEDS ORDERED: MIRALAX17 GM PO (08:13)
[2020-03-04] MEDS ORDERED: COLACE100 MG PO (08:13)
[2020-03-04] MEDS ORDERED: NORCO 10-325 T1 EACH PO (11:17)
[2020-03-04] MEDS ORDERED: TYLENOL325 MG PO (11:18)
--- NOTE | 2020-03-04 11:32 | NUR ---
FAXED REFERRAL TO [facility] SPOKE WITH CHARLY IN INTAKE THEY CAN ACCEPT AT DC,
--- NOTE | 2020-03-04 15:17 | NUR ---
ASSUMED CARE OF PT AT SHIFT CHANGE. ASSESSMENTS CHARTED. MEDS GIVEN PER MAY. PT A&OX4, C/O PAIN TREATED WITH PO MEDS WITH PARTIAL RELIEF. NO C/O SOA OR DISTRESS. DISCHARGE ORDERS AND INSTRUCTIONS COMPLETE. IV AND TELE DC'D. PT TAKEN TO ER ENTRANCE VIA WHEELCHAIR TO SISTER WAITING IN CAR.
== END 2020-03-04 14:45 | disposition home or self-care (01) | DRG 236 ==
LOC: PRE → 2N 18:11 → ICU 02-28 07:43 → EROBS 02-28 08:13 → PRE 02-28 08:16 → TBACV 02-28 10:33 → PRE 02-28 10:40 → ICU 02-28 16:49 → 2N 03-01 14:57
PROVIDERS: Nurse Practitioner Family; Physician Assistant; Surgery Vascular Surgery; ADMIT Internal Medicine; ATTEND Internal Medicine
PROC: 5A02210 Assistance with Cardiac Output using Balloon Pump, Continuous (ICD-10-PCS; principal; 2020-02-28)
PROC: 5A1221Z Performance of Cardiac Output, Continuous (ICD-10-PCS; principal; 2020-02-28)
PROC: 021309W Bypass Coronary Artery, Four or More Arteries from Aorta with Autologous Venous Tissue, Open Approach (ICD-10-PCS; principal; 2020-02-28)
PROC: 05HY33Z Insertion of Infusion Device into Upper Vein, Percutaneous Approach (ICD-10-PCS; principal; 2020-02-28)
PROC: 02100Z9 Bypass Coronary Artery, One Artery from Left Internal Mammary, Open Approach (ICD-10-PCS; principal; 2020-02-28)
PROC: 06BP4ZZ Excision of Right Saphenous Vein, Percutaneous Endoscopic Approach (ICD-10-PCS; principal; 2020-02-28)
PROC: 30233K1 Transfusion of Nonautologous Frozen Plasma into Peripheral Vein, Percutaneous Approach (ICD-10-PCS; principal; 2020-02-28)
PROC: 30233R1 Transfusion of Nonautologous Platelets into Peripheral Vein, Percutaneous Approach (ICD-10-PCS; principal; 2020-02-28)
DX: I25.10 Atherosclerotic heart disease of native coronary artery without angina pectoris (principal); I50.22 Chronic systolic (congestive) heart failure; M10.9 Gout, unspecified; I11.0 Hypertensive heart disease with heart failure; E78.5 Hyperlipidemia, unspecified; G47.00 Insomnia, unspecified; N40.0 Benign prostatic hyperplasia without lower urinary tract symptoms; I25.5 Ischemic cardiomyopathy; Z20.828 Contact with and (suspected) exposure to other viral communicable diseases; Z95.5 Presence of coronary angioplasty implant and graft; I25.2 Old myocardial infarction; Z87.891 Personal history of nicotine dependence
CPT/HCPCS: 10078; 10081; 27000; 47000; 47001; 47002; 62110; 62950; 65003; 65020; 65047; 65090; 65120; 65135; 85076